=== PATIENT | female | born 1995 | race Caucasian/White ===

== ENCOUNTER 2020-10-14 16:19 | Day surgery (SDC) | payer OTHER ==
[2020-10-14 17:09] VITALS: BMI 30.8
[2020-10-14] MEDS ORDERED: hydrALAZINE 20 MG/ML VIAL SLOW IVP PRN (19:45)
[2020-10-14] MEDS ORDERED: Zolpidem Tartrate 5 MG TAB PO SCH (20:00)
== END 2020-10-14 20:20 | disposition home or self-care (01) ==
LOC: CSHLD/OP 16:19
PROVIDERS: ATTEND Family Medicine
DX: O47.1 False labor at or after 37 completed weeks of gestation (principal); O99.891 Other specified diseases and conditions complicating pregnancy; M41.9 Scoliosis, unspecified; Z3A.39 39 weeks gestation of pregnancy; Z79.899 Other long term (current) drug therapy
CPT/HCPCS: 99283

== ENCOUNTER 2020-10-15 03:12 | Inpatient (IN) | payer OTHER ==
[2020-10-15] MEDS ORDERED: Ibuprofen 800 MG TAB PO PRN (05:18)
[2020-10-15] MEDS ORDERED: Promethazine HCl 25 MG/ML VIAL IM PRN ×3 (05:18→23:45)
[2020-10-15] MEDS ORDERED: Ondansetron PF 4 MG/2 ML Vial IVP PRN ×4 (05:18→23:53)
[2020-10-15] MEDS ORDERED: NS / Oxytocin 40 units/1000ml 1,000 ML IV PRN (05:18)
[2020-10-15] MEDS ORDERED: hydrALAZINE 20 MG/ML VIAL SLOW IVP PRN ×2 (05:18→23:53)
[2020-10-15] MEDS ORDERED: Lactated Ringer's 1,000 ML IV SCH ×2 (05:18)
[2020-10-15] MEDS ORDERED: Lidocaine 1% (PF) 30 ML VIAL SC PRN (05:18)
[2020-10-15] MEDS ORDERED: Butorphanol Tartrate 1 MG/ML VIAL SLOW IVP PRN (05:18)
[2020-10-15] MEDS ORDERED: HYDROcodone/Acetaminophen 5/325 mg Tablet PO PRN ×2 (05:18)
[2020-10-15 05:19] VITALS: BMI 30.8
[2020-10-15] MEDS ORDERED: Ondansetron PF 4 MG/2 ML Vial ONE ×2 (05:31→22:06)
[2020-10-15] MEDS ORDERED: Butorphanol Tartrate 1 MG/ML VIAL ONE (05:36)
[2020-10-15 05:37] LABS: Hemoglobin 10.3 g/dL (12.0-15.5); Mean Corpuscular HGB CONC 31.4 g/dL (32.0-36.0); Mean Corpuscular Hemoglobin 26.1 pg (27.0-33.0); Mean Platelet Volume 10.1 fl (7.4-10.4); Platelet Count 346 10x3/uL (150-450); RBC Distribution Width 14.3 % (11.5-14.5); Red Blood Cell (RBC) Count 3.95 10x6/uL (3.90-5.03); White Blood Cell (WBC) Count 11.8 10x3/uL (3.5-10.5)
[2020-10-15 06:18] LABS: Syphilis Antibody Nonreactive (Nonreactive); Syphilis Antibody Index 0.02 S/CO (<1.00 Non-Reactive)
[2020-10-15 06:19] LABS: Hep B Surf Ag Non-Reactive S/CO (NonReactive)
[2020-10-15] MEDS ORDERED: Fentanyl 4 mcg/Bup 0.1% Cadd 100 ML ONE ×3 (07:12→20:54)
[2020-10-15 07:15] LABS: HBSAg Index 0.15 S/CO (0-0.99)
[2020-10-15] MEDS ORDERED: Bupivacaine 0.25% HCL 30 ML VIAL ONE ×2 (08:00→22:13)
[2020-10-15] MEDS ORDERED: Acetaminophen 325 MG TAB PO PRN ×2 (08:16→23:53)
[2020-10-15] MEDS ORDERED: Naloxone HCl 0.4 mg/ml Vial IVP PRN ×4 (08:16→23:45)
[2020-10-15] MEDS ORDERED: Lactated Ringer's 500 ML IV PRN (08:16)
[2020-10-15] MEDS ORDERED: diphenhydrAMINE 50 MG/ML VIAL IVP PRN ×2 (08:16→23:45)
[2020-10-15] MEDS ORDERED: ePHEDrine 50 MG/ML VIAL SLOW IVP PRN (08:16)
[2020-10-15] MEDS ORDERED: Fentanyl 4 mcg/Bupivacaine 0.1% Cassette 100 ML EPIDURAL SCH (08:30)
[2020-10-15] MEDS ORDERED: Communication Order-Pharmacy FS SCH ×2 (08:30→23:45)
[2020-10-15] MEDS ORDERED: NS w/ Oxytocin 30 units 500 ML ONE (09:26)
[2020-10-15] MEDS ORDERED: NS w/ Oxytocin 30 units 500 ML IVPB SCH (09:30)
[2020-10-15 13:36] LABS: SARS-CoV-2 PCR by NAA Not Detected (NotDetected)
[2020-10-15] MEDS ORDERED: Famotidine/PF 20 mg/2ml Vial SLOW IVP PRN (21:41)
[2020-10-15] MEDS ORDERED: Bicitra 30 ML UDCUP PO PRN (21:41)
[2020-10-15] MEDS ORDERED: Azithromycin 500 MG in Sodium Chloride 0.9% 250 ML 250 ML IVPB SCH (22:00)
[2020-10-15] MEDS ORDERED: CEFAZOLIN 2 GM in Premix Bag 1 BAG IVPB SCH (22:00)
[2020-10-15] MEDS ORDERED: Phenylephrine 10 MG/ML VIAL ONE (22:06)
[2020-10-15] MEDS ORDERED: Dexamethasone 4 mg/ml Vial ONE (22:06)
[2020-10-15] MEDS ORDERED: Morphine PF 10 MG/10 ML VIAL ONE (22:06)
[2020-10-15] MEDS ORDERED: Oxytocin 10 UNITS/ML VIAL ONE (22:07)
[2020-10-15] MEDS ORDERED: Ketorolac Tromethamine 30 MG/ML VIAL ONE (22:07)
[2020-10-15] MEDS ORDERED: Lidocaine 2% MPF 10 ML AMP (For Epidural Use) ONE ×2 (22:13→22:28)
[2020-10-15] MEDS ORDERED: Midazolam HCl 2 mg/2 ml Vial ONE (22:25)
[2020-10-15 23:06] LABS: pH (Cord, venous) 7.274 (7.250-7.350)
[2020-10-15] MEDS ORDERED: L&D-Morphine 4 MG/ML VIAL SLOW IVP PRN (23:45)
[2020-10-15] MEDS ORDERED: Meperidine HCl/PF 25 MG/ML VIAL SLOW IVP PRN (23:45)
[2020-10-15] MEDS ORDERED: Ondansetron HCl/PF 4 MG/2 ML Vial IVP PRN (23:45)
[2020-10-15] MEDS ORDERED: Promethazine HCl 25 MG SUPP PR PRN (23:45)
[2020-10-15] MEDS ORDERED: Naloxone HCl 0.4 mg/ml Vial IV PRN (23:45)
[2020-10-15] MEDS ORDERED: HYDROmorphone 2 MG/ML VIAL SLOW IVP PRN (23:45)
[2020-10-15] MEDS ORDERED: NS / Oxytocin 40 units/1000ml 1,000 ML IV SCH (23:45)
[2020-10-15] MEDS ORDERED: Lanolin Ointment 7 GM TUBE TOP PRN (23:53)
[2020-10-15] MEDS ORDERED: diphenhydrAMINE 25 MG CAP PO PRN (23:53)
[2020-10-15] MEDS ORDERED: Misoprostol 200 MCG TAB PR PRN (23:53)
[2020-10-15] MEDS ORDERED: Methylergonovine 0.2 MG/ML VIAL IM PRN (23:53)
[2020-10-16] MEDS ORDERED: Meperidine HCl/PF 25 MG/ML VIAL ONE (01:38)
[2020-10-16] MEDS: Ketorolac Tromethamine 30 MG/ML VIAL IVP SCH ×3 (06:08→18:24)
[2020-10-16] MEDS: Prenatal Vitamin 1 TAB PO SCH (08:29)
[2020-10-16] MEDS ORDERED: Measles/Mumps/Rubella 10 MCG/0.5 ML VIAL SC ONE (09:00)
[2020-10-16] MEDS ORDERED: Adacel (T-DAP) 0.5 ML SYRINGE IM ONE (09:00)
[2020-10-16] MEDS: Simethicone Chewable 80 MG TAB PO PRN (12:32)
[2020-10-17] MEDS: Ketorolac Tromethamine 30 MG/ML VIAL IVP SCH (00:59)
[2020-10-17 05:59] LABS: #Eosinphils 0.1 10x3/uL (0.0-0.5); #Neutrophils 10.6 10x3/uL (1.5-8.4); %Basophils 0.1 % (0.0-2.0); %Eosinophils 0.6 % (0.0-6.0); %Lymphocytes 13.9 % (18.0-47.0); %Monocytes 7.5 % (0.0-10.0); Hemoglobin 7.9 g/dL (12.0-15.5); Mean Corpuscular Hemoglobin 26.4 pg (27.0-33.0); Mean Corpuscular Volume 82.6 fl (81.6-98.3); Mean Platelet Volume 9.4 fl (7.4-10.4); Platelet Count 214 10x3/uL (150-450); RBC Distribution Width 14.6 % (11.5-14.5); Red Blood Cell (RBC) Count 2.99 10x6/uL (3.90-5.03); White Blood Cell (WBC) Count 13.8 10x3/uL (3.5-10.5)
[2020-10-17] MEDS: Ibuprofen 800 MG TAB PO SCH ×3 (06:48→22:51)
[2020-10-17] MEDS ORDERED: Varicella virus, LIVE 0.5 ML VIAL SC ONE (09:00)
[2020-10-17] MEDS ORDERED: HYDROcodone/Acetaminophen 5/325 mg Tablet PO PRN (09:18)
[2020-10-17] MEDS: Prenatal Vitamin 1 TAB PO SCH (09:19)
[2020-10-17] MEDS: HYDROcodone/Acetaminophen 5/325 mg Tablet PO PRN (09:32)
[2020-10-18] MEDS: Ibuprofen 800 MG TAB PO SCH (06:23)
[2020-10-18] MEDS: Prenatal Vitamin 1 TAB PO SCH (08:23)
[2020-10-18] MEDS: HYDROcodone/Acetaminophen 5/325 mg Tablet PO PRN (08:29)
[2020-10-18] MEDS: Simethicone Chewable 80 MG TAB PO PRN (10:32)
[2020-10-18 11:27] VITALS: BP 124/81; TEMP 98.2
== END 2020-10-18 13:54 | disposition home or self-care (01) | DRG 788 ==
LOC: CSHLD/OP 03:12 → CSHLD 03:51 → CSHPP 10-16 01:44
PROVIDERS: ADMIT Family Medicine; ATTEND Family Medicine
PROC: 10D00Z1 Extraction of Products of Conception, Low, Open Approach (ICD-10-PCS; principal; 2020-10-15)
DX: O64.0XX0 Obstructed labor due to incomplete rotation of fetal head, not applicable or unspecified (principal); O32.4XX0 Maternal care for high head at term, not applicable or unspecified; Z3A.38 38 weeks gestation of pregnancy; Z37.0 Single live birth; Z20.822 Contact with and (suspected) exposure to COVID-19
CPT/HCPCS: 51702; 82805; 85025; 85027; 86780; 86850; 86900; 86901; 87340; 87635; 90715; J0595; J0690; J1100; J1885; J2001; J2175; J2250; J2270; J2370; J2405; J2590; Q0163; S0020; U0003; U0005

== ENCOUNTER 2021-09-27 11:21 | Emergency (ER) | payer OTHER ==
[2021-09-27 12:16] LABS: #Monocytes 0.3 10x3/uL (0.0-1.1); #Neutrophils 2.9 10x3/uL (1.5-8.4); %Basophils 0.6 % (0.0-2.0); %Eosinophils 0.6 % (0.0-6.0); %Lymphocytes 29.2 % (18.0-47.0); %Monocytes 6.7 % (0.0-10.0); %Neutrophils 62.9 % (40.0-75.0); Hemoglobin 13.9 g/dL (12.0-15.5); Mean Corpuscular HGB CONC 32.1 g/dL (32.0-36.0); Mean Corpuscular Hemoglobin 28.3 pg (27.0-33.0); Mean Platelet Volume 9.4 fl (7.4-10.4); Platelet Count 367 10x3/uL (150-450); RBC Distribution Width 13.9 % (11.5-14.5); Red Blood Cell (RBC) Count 4.92 10x6/uL (3.90-5.03); White Blood Cell (WBC) Count 4.7 10x3/uL (3.5-10.5)
[2021-09-27 12:20] LABS: Bilirubin Neg (Negative); Blood, Urine Negative (Negative); Clarity Slightly Cloudy (Clear); Glucose, Urine (Dipstick) Normal (Negative); Ketone, Urine Negative (Negative); Leukocyte Negative (Negative); Nitrite Negative (Negative); Protein, Urine (Dipstick) Negative (Neg-Trace); Urobilinogen Normal mg/dL (Less than 2)
[2021-09-27 12:38] LABS: ALT (SGPT) 12 U/L (8-55); AST (SGOT) 18 U/L (5-34); Albumin 4.6 g/dL (3.5-5.0); Alkaline Phosphatase 60 U/L (40-110); Anion Gap 14 mmol/L (10-20); BUN (Urea Nitrogen) 10 mg/dL (7.0-18.7); Bilirubin, Total 0.7 mg/dL (0.2-1.2); Calc. Creatinine Clearance 0 mL/min (70-130); Carbon Dioxide 26 mmol/L (22-29); Chloride 104 mmol/L (98-107); Globulin 3.2 g/dL (2.4-3.5); Glucose 88 mg/dL (70-105); Protein, Total 7.8 g/dL (6.0-8.3); Sodium 140 mmol/L (136-145)
== END 2021-09-27 13:14 | disposition home or self-care (01) ==
LOC: CSHERS 11:21
DX: B34.9 Viral infection, unspecified (principal); R42 Dizziness and giddiness
CPT/HCPCS: 80053; 81003; 85025; 99283

== ENCOUNTER 2022-03-06 14:47 | Outpatient (CLI) | payer OTHER | END 2022-03-06 14:48 | disposition home or self-care (01) | LOC: CSHULT 14:47 | PROVIDERS: ATTEND Family Medicine | DX: T83.32XA Displacement of intrauterine contraceptive device, initial encounter (principal) | CPT/HCPCS: 76856 ==